=== PATIENT | female | born 2000 | race Caucasian/White ===

== ENCOUNTER 2022-07-21 11:03 | Outpatient (REF) | payer BC, SELFPAY ==
--- NOTE | 2022-07-21 09:20 | PAPFT_PTH ---
PATIENT: Phoebe Whatley LOC: [facility] U#:[id number] AGE/SX: 22/F ROOM: RE07/21/[address]: Norah Erazo NP : 2000 BED: DIS: 07/21/2022 SPEC #: [id number] RECD: 07/21/22 12:40 STATUS: ROSANA REAlethea #: [id number] CHINO: 07/21/22 09:[address]: Norah Erazo NP DEPT: [facility] Cytology RECD BY: Kylee Oreilly ENTERED: 07/21/22 12:40 SP TYPE: PAPFT OTHR DR: Ralph Howard DNP Tissues: 1 - CX/ENDOCX FOR PAP SMEARS Procedures: PAP THIN PREP/[facility] Screening Comments: [id number]
== END 2022-07-21 11:04 | disposition home or self-care (01) ==
LOC: LBN 11:03
PROVIDERS: PCP Nurse Practitioner Family; Visit Provider Nurse Practitioner Women's Health
DX: Z12.4 Encounter for screening for malignant neoplasm of cervix (principal)
CPT/HCPCS: 88142

== ENCOUNTER 2023-02-05 08:34 | Day surgery (SDC) | payer BC, SELFPAY ==
--- NOTE | 2023-02-04 14:28 | W.ANESPRE ---
General Info Date of Service Date Performed: 02/05/23 Height: 5 ft 9 in Weight: 71.469 kg Body Mass Index (BMI): 23.2 Surgical Procedure: Operation Date: 02/05/23 10:10 Proposed Procedure Side Surgeon p Excision and Closure Upper Arm Lipoma Left Roberto Huff MD Meds Allergies and Home Medications Allergies Allergy/AdvReac Type Severity Reaction Status Date / Time Penicillins Allergy Verified 02/05/23 08:43 Home Medication Medication Instructions Recorded norgestimate 0.25 mg-ethinyl 1 tab PO DAILY #84 tabs 07/21/22 estradiol 35 mcg tablet Current Visit Medications: Current Medications Generic Name Dose Route Start Last Admin Trade Name Freq PRN Reason Stop Dose Admin Acetaminophen 1,000 mg 02/05/23 06:00 Acetaminophen 500 Mg Tab PO 02/05/23 23:59 PREOP JAY JAY Celecoxib 200 mg 02/05/23 06:00 Celecoxib 200 Mg Cap PO 02/05/23 23:59 PREOP JAY JAY Gabapentin 600 mg 02/05/23 06:00 Gabapentin 300 Mg Cap PO 02/05/23 23:59 PREOP JAY JAY Ringer's Solution 1,000 mls @ 80 mls/hr 02/05/23 06:00 IV 02/05/23 23:59 [facility] IV Miscellaneous Supplies 1 each 02/05/23 06:00 Iv Access IV 02/05/23 23:59 DIRECTED JAY JAY Sodium Chloride 0 ml 02/05/23 06:00 Normal Saline Flush 10 Ml Syr IV 02/05/23 23:59 PRN PRN Sodium Chloride 0 ml 02/05/23 06:00 Normal Saline 10 Ml Vial IJ 02/05/23 23:59 DIRECTED PRN Sterile Water 0 ml 02/05/23 06:00 Water,Injection,Sterile 10 Ml Vial IJ 02/05/23 23:59 DIRECTED PRN PFSH Active Problems Active Problems: Problem Status Onset Code Anxiety F41.9 Oral contraceptive use Z30.41 Mass of upper limb R22.30 Medical History Medical History Dysmenorrhea improved with OCPs Surgical History Surgical History Hx of wisdom tooth extraction No pertinent past surgical history Tobacco Smoking/Tobacco Use Status: Never Alcohol Alcohol Intake: current Alcohol intake frequency: a few times a week Substance Use Substance use: Never Substance use type: does not use Prental History History 0 Para Hx # Term Pregnancies Multiple births Hx # Pregnancies Ectopic pregnancies AB induced Hx Number of Living Children AB spontaneous Vital Signs and Lab Results Vital Signs Most Recent Vital Signs in EMR: Temp Pulse Resp BP Pulse Ox 37.2 C 77 16 134/87 100 02/05/23 09:07 02/05/23 09:07 02/05/23 09:07 02/05/23 09:07 02/05/23 09:07 Lab Results Blood Type / Crossmatch: No Data to Display Complete Blood Count: No Data to Display Complete Metabolic Panel: No Data to Display Liver Function Panel: No Data to Display Coagulation Panel: No Data to Display Cardiac Panel: No Data to Display Arterial Blood Gas: No Data to Display Venous Blood Gas: No Data to Display Pancreas Panel: No Data to Display Thyroid Panel: No Data to Display Infectious Disease: No Data to Display Blood Cultures: No Data to Display Toxicology Panel: No Data to Display Panel: No Data to Display Anesthesia Assessment and Plan Anesthesia History Personal History: No History of Anesthesia Complications Family History: No Family History of Anesthesia Complications Exercise Tolerance Exercise Tolerance: Metabolic Equivalents>4 Cardiac & Pulmonary Exam Cardiac Exam: Normal S1/S2 Heart Sounds Pulmonary Exam: Clear Bilateral Breath Sounds Implantable Cardiac Device Does patient have a Pacemaker or an ICD?: No Airway Exam Known Difficult Airway: No Mallampati Class: 2 Mouth Opening: Normal (> 3cm) Thyromental Distance: Greater than 3 cm Neck Range of Motion: Full ROM Neck Circumference: Normal Teeth Condition: Normal Dentition ASA Classification ASA Score: ASA 2 Emergency Case?: No NPO Status NPO Status: NPO Clears >2 hours, Solids >8 hours Status Status: Negative HCG Anesthesia Plan Resuscitation Status: Full Code Anesthesia Technique: General Anesthesia Airway Planned: Natural Airway Monitors Used: Standard Monitors Preoperative Comments:: 22 yo female for lesion excision. Sig PMHx: Anxiety, nonsmoker, occ EtOH.
--- NOTE | 2023-02-04 16:48 | PDOC.DSDIS_ITS ---
Date of service: 02/05/23 Time of Service: 10:38 Discharge Plan Disposition Patient Disposition: Home Condition: Good Discharge Details Reason For Visit: Excision and primary closure of left arm lipoma Attending Provider: Roberto Huff Primary Care Provider: Ralph Ulrich Home Meds and New Rx's Prescriptions: New tramadol 50 mg tablet 50 mg PO Q8H PRNQty: 9 0RF Rx Instructions: Take one tablet up to every 8 hours if needed for more severe pain Continued norgestimate-ethinyl estradiol 0.25-35 mg-mcg tablet 1 tab PO DAILY Qty: 84 3RF Discharge Instructions Instructions: Lipoma Removal (GEN) Additional Instructions: Phoebe, we were able to complete the procedure today without any issues at all. Like we talked about beforehand, the mass has clinical features of a lipoma, which is a benign fat tumor. Hopefully, the surgery will be the cure, and you make a full recovery without any issues. I would expect to have some pain in the next 48 hours or so. I have provided a prescription for a medication called tramadol to help. You should also be using Tylenol and ibuprofen [id number] for the next 48 hours. I would expect some bruising in the area, so do not be alarmed if you notice that. I have also attached some genera l information below. If you have any questions at all, please do not hesitate to call. Otherwise, with a core dissing you in the office on the . 1. Resume all of your medications. 2. Heating pads and ice packs to be used for your comfort 3. Okay to use tylenol and ibuprofen over the counter as needed. Use [] as needed for severe pain. 4. Leave bandage in place for 24 hours, then remove. 5. Shower with warm soapy water. Pat dry. Use a bandaid if needed to protect your clothing. 6. No soaking or tub baths until I see you in the office. 7. No heavy lifting until I see you in the office. 8.Call the office (or go directly to the emergency room after hours) if you notice any of the following: Develop chills (warm to touch), or if you have a thermometer and your temperature is above 101 Difficulty breathing or difficultly swallowing Persistent vomiting Any bleeding ? exceeding one tablespoon 9. Call your physician if the site where your intravenous was started becomes red, swollen, painful, and warm to touch. Activity:: Activity as Tolerated Diet:: As Tolerated Discharge Orders Discharge Orders: Discharge Order (Routine); Ordered 02/04/23 Ordered By: Roberto Huff DS: Diagnosis Discharge Diagnosis (1) Mass of upper limb: Status: Acute Asessment and Plan: Surgical follow-up in the office on February 17
--- NOTE | 2023-02-04 16:49 | W.PM.OP ---
Date of service: 02/05/23 Time of Service: 10:42 Operative Note Operative Note DATE OF PROCEDURE: 02/05/23 PRE-OP DIAGNOSIS: Left upper extremity lipoma POST-OP DIAGNOSIS: same PROCEDURE: Excision and primary closure of left upper extremity lipoma SURGEON: Roberto Huff ANESTHESIA TYPE: Local By Surgeon and MAC Refer to Anesthesia Record ESTIMATED BLOOD LOSS: 5 PATHOLOGY: other (Left upper extremity lipoma) COMPLICATIONS: None Patient was transported to: same day Patient's condition: stable Indications: Phoebe is a 22-year-old woman with a soft tissue mass on the area of the left triceps. Clinical features are consistent with a lipoma. She has had some increased growth of it over the years, and is interested in removal. Procedure Description: After the induction of general anesthesia with the natural airway, I prepped and draped the left upper extremity in the usual fashion. It was draped across her chest for positioning. Next, I established a generous field block using local anesthetic with epinephrine. I then made a longitudinal skin incision parallel to the axis of the arm. The incision was approximately 6 cm long. I dissected down through the skin into the subcutaneous fat, and encountered a well-defined encapsulated soft tissue mass that appeared to be a lipoma. I continued circumferential dissection of the soft tissues away from it. The dissection was carried down along the underside, which was well superficial to the deep fascia. The mass was removed in its entirety. It was passed off the field labeled appropriately. The surgical site was then irrigated. The incision, which ended up being about 3 cm deep was closed in layers using interrupted Vicryl stitches, and a running subcuticular stitch. Steri-Strips were applied at the skin level, and a Band-Aid was used to protect the incision site. Anesthetic was then allowed to taper off, and the patient was transferred back to the same-day surgery unit for discharge.
[2023-02-05 09:07] VITALS: BP 134/87; PULSE 77; RESP 16; TEMP 37.2; O2SAT 100
[2023-02-05] MEDS: Acetaminophen 500 MG TAB 1000 MG PO (09:13)
[2023-02-05] MEDS: Celecoxib 200 MG CAP PO (09:13)
[2023-02-05] MEDS: Gabapentin 300 MG CAP 600 MG PO (09:14)
[2023-02-05] MEDS: Lactated Ringers 1,000 ML 80 ML IV (09:14)
[2023-02-05 09:16] VITALS: BMI 23.2
--- NOTE | 2023-02-05 10:28 | SOFT_PTH ---
PATIENT: Phoebe Whatley LOC: [facility] U#:[id number] AGE/SX: 22/F ROOM: RE02/05/[address]: Roberto Huff MD : 2000 BED: DIS: 02/05/2023 SPEC #: [id number] RECD: 02/05/23 12:47 STATUS: ROSANA REQ #: [id number] CHINO: 02/05/23 10:[address]: Roberto Huff DEPT: Surgical Specimen RECD BY: Kylee Oreilly ENTERED: 02/05/23 12:49 SP TYPE: SOFT OTHR DR: Ralph Howard DNP Tissues: 1 - SOFT TISSUE MISC (INC. LIPOMA) Procedures: GROSS AND MICRO LEVEL 3 Comments: [id number]
[2023-02-05 10:40] VITALS: BP 137/79; PULSE 61; RESP 16; TEMP 36.8; O2SAT 100
--- NOTE | 2023-02-05 10:48 | W.ANESPOSTOP ---
Postoperative Evaluation Date, Time and Location Date Performed: 02/05/23 Time Performed: 10:48 Patient Location: Day Surgery Unit Vital Signs Most Recent Imported Vital Signs: Most Recent Vital Signs Temp Pulse Resp BP Pulse Ox 36.8 C 61 16 137/79 100 02/05/23 10:40 02/05/23 10:40 02/05/23 10:40 02/05/23 10:40 02/05/23 10:40 Pain Score Most Recent Pain Score: Most Recent Pain Score Pain Level 0 02/05/23 10:40 Assessment Mental Status: Arousable with meaningful communication Airway and Respiratory Function: Patent airway with normal (patient baseline) respiratory exam Cardiovascular Function: Hemodynamically Stable Hydration Status: Adequately Hydrated Nausea & Vomiting: No Nausea or Vomiting Pain: Pain is tolerable per patient Peripheral Nerve Block: Patient did not receive a nerve block
[2023-02-05 11:10] VITALS: BP 124/76; PULSE 66; RESP 16; TEMP 36.6; O2SAT 98
== END 2023-02-05 11:55 | disposition home or self-care (01) ==
PROVIDERS: PCP Nurse Practitioner Family; Visit Provider Surgery
PROC: (CPT 24071; principal; 2023-02-05 10:00)
DX: D17.22 Benign lipomatous neoplasm of skin and subcutaneous tissue of left arm (principal)
CPT/HCPCS: 24071; 81025; 88304; J1100; J2001; J2250; J2405